=== PATIENT | female | born 1995 | race Caucasian/White ===

== ENCOUNTER 2019-04-02 14:29 | Inpatient (IN) | payer BC ==
[~2019-04-02 14:29] MED LIST: Citric Acid/Sodium Citrate Solution 30 ML Cup PO ONE; Sodium Chloride 0.9% 10 ML SDV IV PRN; Sodium Chloride 0.9% 10 ML Syringe FLUSH PRN; Sodium Chloride 0.9% 2.5 ML Syringe FLUSH PRN; ceFAZolin 2 GM in Premix Bag 1 BAG IV ONE
[2019-04-02] MEDS ORDERED: Lactated Ringers 1,000 ML IV SCH ×2 (14:30→16:45)
[2019-04-02] MEDS ORDERED: Oxytocin/0.9 % Sodium Chloride 30 UNIT/500 ML BAG IV SCH (14:30)
[2019-04-02] MEDS ORDERED: Sodium Chloride 0.9% 1,000 ML IV ONE (14:53)
[2019-04-02] MEDS ORDERED: Propofol 200 MG/20 ML SDV ONE (14:57)
[2019-04-02] MEDS ORDERED: Oxytocin 10 Units/1 ML SDV ONE (14:57)
[2019-04-02] MEDS ORDERED: Ondansetron 4 MG/2 ML SDV ONE (14:57)
[2019-04-02] MEDS ORDERED: ePHEDrine 50 MG/ML SDV ONE (14:58)
[2019-04-02] MEDS ORDERED: Morphine PF 10 MG/10 ML SDV ONE (15:00)
--- NOTE | 2019-04-02 15:00 | PCM.PREANE ---
Preanesthetic Assessment - Anesthesia/Transfusion/Family Hx Anesthesia History: Prior Anesthesia Without Reaction Family History of Anesthesia Reaction: No Transfusion History: No Prior Transfusion(s) Intubation History: Unknown - Review of Systems General: No Symptoms Pulmonary: No Symptoms Cardiovascular: No Symptoms Gastrointestinal: No Symptoms Neurological: No Symptoms Other: Reports: None - Physical Assessment Height: 5 ft 9 in Weight: 78.018 kg ASA Class: 2 Mental Status: Alert & Oriented x3 Airway Class: Mallampati = 2 Dentition: Reports: Normal Dentition Thyro-Mental Finger Breadths: 3 Mouth Opening Finger Breadths: 3 ROM/Head Extension: Full Lungs: Clear to Auscultation, Normal Respiratory Effort Cardiovascular: Regular Rate, Regular Rhythm - Lab Values: Laboratory Last Values WBC 8.65 K/uL (4.0-11.0) 04/02/19 14:38 RBC 4.33 M/uL (4.30-5.90) 04/02/19 14:38 Hgb 13.0 g/dL (12.0-16.0) 04/02/19 14:38 Hct 37.6 % (36.0-46.0) 04/02/19 14:38 MCV 86.8 fL (80.0-98.0) 04/02/19 14:38 MCH 30.0 pg (27.0-32.0) 04/02/19 14:38 MCHC 34.6 g/dL (31.0-37.0) 04/02/19 14:38 RDW Std Deviation 39.1 fl (28.0-62.0) 04/02/19 14:38 RDW Coeff of Bin 12 % (11.0-15.0) 04/02/19 14:38 Plt Count 194 K/uL (150-400) 04/02/19 14:38 MPV 11.20 fL (7.40-12.00) 04/02/19 14:38 Nucleated RBC % 0.0 /100WBC 04/02/19 14:38 Nucleated RBCs # 0 K/uL 04/02/19 14:38 - Allergies Allergies/Adverse Reactions: Allergies Allergy/AdvReac Type Severity Reaction Status Date / Time No Known Allergies Allergy Verified 04/01/19 08:20 - Blood Blood Available: No - Anesthesia Plan Pre-Op Medication Ordered: None - Acknowledgements Anesthesia Type Planned: Spinal (general anesthesia back-up plan) Pt an Appropriate Candidate for the Planned Anesthesia: Yes Alternatives and Risks of Anesthesia Discussed w Pt/Guardian: Yes Pt/Guardian Understands and Agrees with Anesthesia Plan: Yes PreAnesthesia Questionnaire HEENT History: Reports: None Cardiovascular History: Reports: None Respiratory History: Reports: None Gastrointestinal History: Reports: None Genitourinary History: Reports: None 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: Musculoskeletal History: Reports: Fracture Other Musculoskeletal History: hx fx wrists as a child Neurological History: Reports: None Psychiatric History: Reports: None Endocrine/Metabolic History: Reports: None Hematologic History: Reports: None Immunologic History: Reports: None Oncologic (Cancer) History: Reports: None Dermatologic History: Reports: None - Past Surgical History Head Surgeries/Procedures: Reports: None HEENT Surgical History: Reports: Adenoidectomy, Oral Surgery, Tonsillectomy Cardiovascular Surgical History: Reports: None Respiratory Surgical History: Reports: None GI Surgical History: Reports: None Female Surgical History: Reports: None Endocrine Surgical History: Reports: None Neurological Surgical History: Reports: None Musculoskeletal Surgical History: Reports: Arthroscopic Knee Other Musculoskeletal Surgeries/Procedures:: ACL repair rt knee Oncologic Surgical History: Reports: None Dermatological Surgical History: Reports: None - SUBSTANCE USE Smoking Status *Q: Never Smoker Recreational Drug Use History: No - HOME MEDS Home Medications: Home Meds Acetaminophen [Tylenol Extra Strength] 1 - 2 tab PO ASDIRECTED PRN 04/01/19 [ History] PNV95/Ferrous Fumarate/FA [ Vitamin Tablet] 1 tab PO DAILY 04/01/19 [ History] - CURRENT (IN HOUSE) MEDS Current Meds: Current Medications Lactated Ringer's (Ringers, Lactated) 1,000 mls @ 500 mls/hr IV BOLUS [facility] Oxytocin/Sodium Chloride (Oxytocin 30 Unit/500 Ml-Ns) 30 unit in 500 mls @ 250 mls/hr IV TITRATE [facility] Sodium Chloride (Normal Saline) 1,000 mls @ 999 mls/hr IV .Bolus ONE Stop: 04/02/19 15:53 Sodium Chloride (Saline Flush) 10 ml FLUSH ASDIRECTED PRN PRN Reason: Keep Vein Open Sodium Chloride (Saline Flush) 2.5 ml FLUSH ASDIRECTED PRN PRN Reason: Keep Vein Open Sodium Chloride (Normal Saline) 10 ml IV ASDIRECTED PRN PRN Reason: IV Use Discontinued Medications Citric Acid/Sodium Citrate (Bicitra Solution) 30 ml PO ONETIME ONE Stop: 04/02/19 14:28 Cefazolin Sodium/Dextrose 2 gm (/ Premix) 50 mls @ 100 mls/hr IV ONETIME ONE Stop: 04/02/19 14:56
[2019-04-02] MEDS ORDERED: Octyl 2-Cyanoacrylate 1 Tube ONE (15:02)
--- NOTE | 2019-04-02 16:34 | PCM.OPNOTE ---
- General Post-Op/Procedure Note Date of Surgery/Procedure: 04/02/19 Operative Procedure(s): primary low transverse Findings: Liveborn male iglesia breech presentation, normal pelvis Pre Op Diagnosis: 38 4/7 weeks iglesia breech presentation, oligohydramnios Post-Op Diagnosis: Same Anesthesia Technique: Spinal Primary Surgeon: Love Broussard Anesthesia Provider: Vale Arzate Radic Pathology: placenta to pathology Fluid Replacement, Intraop: 2,800 Output, Urine Amount: 125 EBL in mLs: 400 Complications: None Known Condition: Good
[2019-04-02] MEDS ORDERED: Lanolin 100% Cream 7 GM Tube TOP PRN (16:35)
[2019-04-02] MEDS ORDERED: Acetaminophen/oxyCODONE 325-5 MG Tab PO PRN ×2 (16:35→16:52)
[2019-04-02] MEDS ORDERED: Bisacodyl 10 MG Supp RECTAL PRN (16:35)
[2019-04-02] MEDS ORDERED: diphenhydrAMINE 50 MG/ML SDV IVPUSH PRN ×2 (16:35→16:52)
[2019-04-02] MEDS ORDERED: Ondansetron 4 MG/2 ML SDV IVPUSH PRN ×2 (16:35→16:52)
[2019-04-02] MEDS ORDERED: Naloxone 0.4 MG/ML Syringe IVPUSH PRN (16:52)
[2019-04-02] MEDS ORDERED: fentaNYL 100 MCG/2 ML SDV IVPUSH PRN (16:52)
[2019-04-02] MEDS ORDERED: Nalbuphine 10 MG/1 ML Vial IVPUSH PRN (16:52)
[2019-04-02] MEDS: Ketorolac 30 MG/ML SDV IVPUSH SCH ×2 (16:55→22:44)
[2019-04-02] MEDS: Docusate Sodium 100 MG Cap PO SCH (21:20)
[2019-04-03] MEDS: Ketorolac 30 MG/ML SDV IVPUSH SCH ×3 (04:44→17:23)
--- NOTE | 2019-04-03 09:45 | PCM.PN ---
- General Info Date of Service: 04/03/19 (POD#1 primary for breech/oligo) Functional Status: Reports: Pain Controlled - Review of Systems General: Reports: No Symptoms Gastrointestinal: Reports: No Symptoms Genitourinary: Reports: No Symptoms - Patient Data Vitals - Most Recent: Last Vital Signs Temp 36.8 C 04/03/19 07:35 Pulse 64 04/03/19 07:35 Resp 14 04/03/19 09:00 BP 120/81 04/03/19 07:35 Pulse Ox 98 04/03/19 09:00 Weight - Most Recent: 78.018 kg I&O - Last 24 Hours: Intake & Output 04/02/19 04/03/19 04/03/19 22:59 06:59 14:59 Intake Total 3200 Output Total 1300 2050 Balance 1900 -2050 Lab Results Last 24 Hours: Laboratory Results - last 24 hr 04/02/19 04/02/19 04/02/19 Range/Units 14:38 14:38 15:37 WBC 8.65 (4.0-11.0) K/uL RBC 4.33 (4.30-5.90) M/uL Hgb 13.0 (12.0-16.0) g/dL Hct 37.6 (36.0-46.0) % MCV 86.8 (80.0-98.0) fL MCH 30.0 (27.0-32.0) pg MCHC 34.6 (31.0-37.0) g/dL RDW Std Deviation 39.1 (28.0-62.0) fl RDW Coeff of Bin 12 (11.0-15.0) % Plt Count 194 (150-400) K/uL MPV 11.20 (7.40-12.00) fL Nucleated RBC % 0.0 /100WBC Nucleated RBCs # 0 K/uL Cord ABG pH 7.296 (7.18-7.38) Cord ABG Base Excess -5 (-10--2) Cord VBG pH (7.25-7.45) Cord VBG Base Excess (-10--2) Blood Type A POSITIVE Antibody Screen NEGATIVE 04/02/19 04/03/19 Range/Units 15:37 05:41 WBC (4.0-11.0) K/uL RBC (4.30-5.90) M/uL Hgb 11.6 L (12.0-16.0) g/dL Hct 34.2 L (36.0-46.0) % MCV (80.0-98.0) fL MCH (27.0-32.0) pg MCHC (31.0-37.0) g/dL RDW Std Deviation (28.0-62.0) fl RDW Coeff of Bin (11.0-15.0) % Plt Count (150-400) K/uL MPV (7.40-12.00) fL Nucleated RBC % /100WBC Nucleated RBCs # K/uL Cord ABG pH (7.18-7.38) Cord ABG Base Excess (-10--2) Cord VBG pH 7.318 (7.25-7.45) Cord VBG Base Excess -5 (-10--2) Blood Type Antibody Screen Med Orders - Current: Current Medications Bisacodyl (Dulcolax) 10 mg RECTAL ONETIME PRN PRN Reason: Constipation Diphenhydramine HCl (Benadryl) 25 mg IVPUSH Q6H PRN PRN Reason: Itching or Nausea Diphenhydramine HCl (Benadryl) 25 mg IVPUSH Q4H PRN PRN Reason: Itching Stop: 04/03/19 16:52 Docusate Sodium (Colace) 100 mg PO BID [facility] Last Admin: 04/02/19 21:20 Dose: 100 mg Emollient Ointment (Lansinoh Hpa) 0 gm TOP ASDIRECTED PRN PRN Reason: Sore Nipples Fentanyl (Sublimaze) 50 mcg IVPUSH Q1H PRN PRN Reason: Pain (severe 7-10) Lactated Ringer's (Ringers, Lactated) 1,000 mls @ 125 mls/hr IV ASDIRECTED [facility] Last Admin: 04/02/19 22:45 Dose: 125 mls/hr Ibuprofen (Motrin) 800 mg PO Q8H PRN PRN Reason: mild pain or fever Ketorolac Tromethamine (Toradol) 30 mg IVPUSH Q6H [facility] Stop: 04/03/19 16:46 Last Admin: 04/03/19 04:44 Dose: 30 mg Nalbuphine HCl (Nubain) 5 mg IVPUSH ASDIRECTED PRN PRN Reason: Itching Last Admin: 04/02/19 17:37 Dose: 5 mg Naloxone HCl (Narcan) 0.1 mg IVPUSH ONETIME PRN PRN Reason: Respiratory Depression Stop: 04/03/19 16:52 Ondansetron HCl (Zofran) 4 mg IVPUSH Q4H PRN PRN Reason: Nausea/Vomiting Ondansetron HCl (Zofran) 4 mg IVPUSH Q6H PRN PRN Reason: Nausea Oxycodone/Acetaminophen (Percocet 325-5 Mg) 1 tab PO Q4H PRN PRN Reason: Pain (moderate 4-6) Oxycodone/Acetaminophen (Percocet 325-5 Mg) 2 tab PO Q4H PRN PRN Reason: Pain (moderate 4-6) Oxycodone/Acetaminophen (Percocet 325-5 Mg) 2 tab PO Q6H PRN PRN Reason: Pain (moderate 4-6) Discontinued Medications Citric Acid/Sodium Citrate (Bicitra Solution) 30 ml PO ONETIME ONE Stop: 04/02/19 14:28 Ephedrine Sulfate (Ephedrine Sulfate) Confirm Administered Dose 50 mg .ROUTE .STK-MED ONE Stop: 04/02/19 14:59 Cefazolin Sodium/Dextrose 2 gm (/ Premix) 50 mls @ 100 mls/hr IV ONETIME ONE Stop: 04/02/19 14:56 Lactated Ringer's (Ringers, Lactated) 1,000 mls @ 500 mls/hr IV BOLUS [facility] Last Admin: 04/02/19 15:10 Dose: 999 mls/hr Oxytocin/Sodium Chloride (Oxytocin 30 Unit/500 Ml-Ns) 30 unit in 500 mls @ 250 mls/hr IV TITRATE [facility] Sodium Chloride (Normal Saline) 1,000 mls @ 999 mls/hr IV .Bolus ONE Stop: 04/02/19 15:53 Last Admin: 04/02/19 14:45 Dose: 999 mls/hr Morphine Sulfate (Duramorph Pf) Confirm Administered Dose 10 mg .ROUTE .STK-MED ONE Stop: 04/02/19 15:01 Octyl Cyanoacrylate (Dermabond Advance) Confirm Administered Dose 1 applic .ROUTE .STK-MED ONE Stop: 04/02/19 15:03 Ondansetron HCl (Zofran) Confirm Administered Dose 4 mg .ROUTE .STK-MED ONE Stop: 04/02/19 14:58 Oxytocin (Pitocin) Confirm Administered Dose 30 unit .ROUTE .STK-MED ONE Stop: 04/02/19 14:58 Propofol (Diprivan 20 Ml) Confirm Administered Dose 200 mg .ROUTE .STK-MED ONE Stop: 04/02/19 14:58 Sodium Chloride (Saline Flush) 10 ml FLUSH ASDIRECTED PRN PRN Reason: Keep Vein Open Sodium Chloride (Saline Flush) 2.5 ml FLUSH ASDIRECTED PRN PRN Reason: Keep Vein Open Sodium Chloride (Normal Saline) 10 ml IV ASDIRECTED PRN PRN Reason: IV Use - Exam General: Alert, Oriented, Cooperative, No Acute Distress Neck: Supple Lungs: Normal Respiratory Effort GI/Abdominal Exam: Soft, Non-Tender, Other (Uterus firm and non-tender below umbilicus. Incision appears healthy.) - Problem List & Annotations (1) Delivery by section SNOMED Code(s): 441830626 Code(s): PAW0113 - Status: Acute Current Visit: Yes (2) Breech presentation SNOMED Code(s): 1162287 Code(s): O32.1XX0 - MATERNAL CARE FOR BREECH PRESENTATION, UNSP Status: Acute Current Visit: Yes - Problem List Review Problem List Initiated/Reviewed/Updated: Yes - Assessment Assessment:: POD#1 doing well. Continue cares. Likely d/c in am. - Plan Plan:: See ASSESSMENT
[2019-04-03] MEDS: Docusate Sodium 100 MG Cap PO SCH ×2 (09:47→21:51)
--- NOTE | 2019-04-03 16:47 | PCM.PN ---
- General Info Date of Service: 04/03/19 (Possible area of bleeding of her incision) Admission Dx/Problem (Free Text): I was called by nurse about 3:00 regarding appearance of wound. Functional Status: Reports: Pain Controlled, Tolerating Diet, Ambulating - Patient Data Vitals - Most Recent: Last Vital Signs Temp 37.0 C 04/03/19 16:22 Pulse 62 04/03/19 16:22 Resp 16 04/03/19 16:22 BP 120/77 04/03/19 16:22 Pulse Ox 96 04/03/19 16:22 Weight - Most Recent: 78.018 kg I&O - Last 24 Hours: Intake & Output 04/03/19 04/03/19 04/03/19 06:59 14:59 22:59 Output Total 2049 Balance -2049 Lab Results Last 24 Hours: Laboratory Results - last 24 hr 04/02/19 04/02/19 04/03/19 Range/Units 15:37 15:37 05:41 Hgb 11.6 L (12.0-16.0) g/dL Hct 34.2 L (36.0-46.0) % Cord ABG pH 7.296 (7.18-7.38) Cord ABG Base Excess -5 (-10--2) Cord VBG pH 7.318 (7.25-7.45) Cord VBG Base Excess -5 (-10--2) Med Orders - Current: Current Medications Bisacodyl (Dulcolax) 10 mg RECTAL ONETIME PRN PRN Reason: Constipation Diphenhydramine HCl (Benadryl) 25 mg IVPUSH Q6H PRN PRN Reason: Itching or Nausea Diphenhydramine HCl (Benadryl) 25 mg IVPUSH Q4H PRN PRN Reason: Itching Stop: 04/03/19 16:52 Docusate Sodium (Colace) 100 mg PO BID [facility] Last Admin: 04/03/19 09:47 Dose: 100 mg Emollient Ointment (Lansinoh Hpa) 0 gm TOP ASDIRECTED PRN PRN Reason: Sore Nipples Fentanyl (Sublimaze) 50 mcg IVPUSH Q1H PRN PRN Reason: Pain (severe 7-10) Lactated Ringer's (Ringers, Lactated) 1,000 mls @ 125 mls/hr IV ASDIRECTED [facility] Last Admin: 04/02/19 22:45 Dose: 125 mls/hr Ibuprofen (Motrin) 800 mg PO Q8H PRN PRN Reason: mild pain or fever Ketorolac Tromethamine (Toradol) 30 mg IVPUSH Q6H [facility] Stop: 04/03/19 16:46 Last Admin: 04/03/19 11:07 Dose: 30 mg Nalbuphine HCl (Nubain) 5 mg IVPUSH ASDIRECTED PRN PRN Reason: Itching Last Admin: 04/02/19 17:37 Dose: 5 mg Naloxone HCl (Narcan) 0.1 mg IVPUSH ONETIME PRN PRN Reason: Respiratory Depression Stop: 04/03/19 16:52 Ondansetron HCl (Zofran) 4 mg IVPUSH Q4H PRN PRN Reason: Nausea/Vomiting Ondansetron HCl (Zofran) 4 mg IVPUSH Q6H PRN PRN Reason: Nausea Oxycodone/Acetaminophen (Percocet 325-5 Mg) 1 tab PO Q4H PRN PRN Reason: Pain (moderate 4-6) Oxycodone/Acetaminophen (Percocet 325-5 Mg) 2 tab PO Q4H PRN PRN Reason: Pain (moderate 4-6) Oxycodone/Acetaminophen (Percocet 325-5 Mg) 2 tab PO Q6H PRN PRN Reason: Pain (moderate 4-6) Discontinued Medications Citric Acid/Sodium Citrate (Bicitra Solution) 30 ml PO ONETIME ONE Stop: 04/02/19 14:28 Ephedrine Sulfate (Ephedrine Sulfate) Confirm Administered Dose 50 mg .ROUTE .STK-MED ONE Stop: 04/02/19 14:59 Cefazolin Sodium/Dextrose 2 gm (/ Premix) 50 mls @ 100 mls/hr IV ONETIME ONE Stop: 04/02/19 14:56 Lactated Ringer's (Ringers, Lactated) 1,000 mls @ 500 mls/hr IV BOLUS [facility] Last Admin: 04/02/19 15:10 Dose: 999 mls/hr Oxytocin/Sodium Chloride (Oxytocin 30 Unit/500 Ml-Ns) 30 unit in 500 mls @ 250 mls/hr IV TITRATE [facility] Sodium Chloride (Normal Saline) 1,000 mls @ 999 mls/hr IV .Bolus ONE Stop: 04/02/19 15:53 Last Admin: 04/02/19 14:45 Dose: 999 mls/hr Morphine Sulfate (Duramorph Pf) Confirm Administered Dose 10 mg .ROUTE .STK-MED ONE Stop: 04/02/19 15:01 Octyl Cyanoacrylate (Dermabond Advance) Confirm Administered Dose 1 applic .ROUTE .STK-MED ONE Stop: 04/02/19 15:03 Ondansetron HCl (Zofran) Confirm Administered Dose 4 mg .ROUTE .STK-MED ONE Stop: 04/02/19 14:58 Oxytocin (Pitocin) Confirm Administered Dose 30 unit .ROUTE .STK-MED ONE Stop: 04/02/19 14:58 Propofol (Diprivan 20 Ml) Confirm Administered Dose 200 mg .ROUTE .STK-MED ONE Stop: 04/02/19 14:58 Sodium Chloride (Saline Flush) 10 ml FLUSH ASDIRECTED PRN PRN Reason: Keep Vein Open Sodium Chloride (Saline Flush) 2.5 ml FLUSH ASDIRECTED PRN PRN Reason: Keep Vein Open Sodium Chloride (Normal Saline) 10 ml IV ASDIRECTED PRN PRN Reason: IV Use - Exam GI/Abdominal Exam: Soft, Non-Tender (Pfannensteil incision intact. Area of ecchymosis marked by nurse after she called me about 3:00 - no extension of ecchymosis. Areas around wound are not raised. Doubt hematoma. Doubt active bleeding. Ecchymosis appearance.) - Problem List & Annotations (1) Delivery by section SNOMED Code(s): 729862545 Code(s): GWZ9444 - Status: Acute Current Visit: Yes (2) Breech presentation SNOMED Code(s): 9498184 Code(s): O32.1XX0 - MATERNAL CARE FOR BREECH PRESENTATION, UNSP Status: Acute Current Visit: Yes - Problem List Review Problem List Initiated/Reviewed/Updated: Yes - Assessment Assessment:: POD#1 doing well. Continue cares. Likely d/c in am. - Plan Plan:: continue current routine post-op and PP cares. Pressure against wound with CHAYITO wrap.
[2019-04-03] MEDS: Acetaminophen/oxyCODONE 325-5 MG Tab PO PRN (21:51)
[2019-04-04] MEDS: Ibuprofen 800 MG Tab PO PRN ×2 (01:57→10:45)
[2019-04-04] MEDS: Acetaminophen/oxyCODONE 325-5 MG Tab PO PRN ×2 (05:49→12:58)
--- NOTE | 2019-04-04 09:49 | PCM.PN ---
- General Info Date of Service: 04/04/19 (POD#2, pt feeling well.) Functional Status: Reports: Pain Controlled, Tolerating Diet, Ambulating - Review of Systems General: Reports: No Symptoms Gastrointestinal: Reports: No Symptoms Genitourinary: Reports: No Symptoms (Incision without pain, wothout drainage.) - Patient Data Vitals - Most Recent: Last Vital Signs Temp 36.6 C 04/04/19 07:14 Pulse 60 04/04/19 07:14 Resp 16 04/04/19 09:19 BP 108/65 04/04/19 07:14 Pulse Ox 95 04/04/19 07:14 Weight - Most Recent: 78.018 kg Med Orders - Current: Current Medications Bisacodyl (Dulcolax) 10 mg RECTAL ONETIME PRN PRN Reason: Constipation Diphenhydramine HCl (Benadryl) 25 mg IVPUSH Q6H PRN PRN Reason: Itching or Nausea Docusate Sodium (Colace) 100 mg PO BID [facility] Last Admin: 04/03/19 21:51 Dose: 100 mg Emollient Ointment (Lansinoh Hpa) 0 gm TOP ASDIRECTED PRN PRN Reason: Sore Nipples Fentanyl (Sublimaze) 50 mcg IVPUSH Q1H PRN PRN Reason: Pain (severe 7-10) Lactated Ringer's (Ringers, Lactated) 1,000 mls @ 125 mls/hr IV ASDIRECTED [facility] Last Admin: 04/02/19 22:45 Dose: 125 mls/hr Ibuprofen (Motrin) 800 mg PO Q8H PRN PRN Reason: mild pain or fever Last Admin: 04/04/19 01:57 Dose: 800 mg Nalbuphine HCl (Nubain) 5 mg IVPUSH ASDIRECTED PRN PRN Reason: Itching Last Admin: 04/02/19 17:37 Dose: 5 mg Ondansetron HCl (Zofran) 4 mg IVPUSH Q4H PRN PRN Reason: Nausea/Vomiting Ondansetron HCl (Zofran) 4 mg IVPUSH Q6H PRN PRN Reason: Nausea Oxycodone/Acetaminophen (Percocet 325-5 Mg) 1 tab PO Q4H PRN PRN Reason: Pain (moderate 4-6) Last Admin: 04/04/19 05:49 Dose: 1 tab Oxycodone/Acetaminophen (Percocet 325-5 Mg) 2 tab PO Q4H PRN PRN Reason: Pain (moderate 4-6) Oxycodone/Acetaminophen (Percocet 325-5 Mg) 2 tab PO Q6H PRN PRN Reason: Pain (moderate 4-6) Discontinued Medications Citric Acid/Sodium Citrate (Bicitra Solution) 30 ml PO ONETIME ONE Stop: 04/02/19 14:28 Diphenhydramine HCl (Benadryl) 25 mg IVPUSH Q4H PRN PRN Reason: Itching Stop: 04/03/19 16:52 Ephedrine Sulfate (Ephedrine Sulfate) Confirm Administered Dose 50 mg .ROUTE .STK-MED ONE Stop: 04/02/19 14:59 Cefazolin Sodium/Dextrose 2 gm (/ Premix) 50 mls @ 100 mls/hr IV ONETIME ONE Stop: 04/02/19 14:56 Lactated Ringer's (Ringers, Lactated) 1,000 mls @ 500 mls/hr IV BOLUS [facility] Last Admin: 04/02/19 15:10 Dose: 999 mls/hr Oxytocin/Sodium Chloride (Oxytocin 30 Unit/500 Ml-Ns) 30 unit in 500 mls @ 250 mls/hr IV TITRATE [facility] Sodium Chloride (Normal Saline) 1,000 mls @ 999 mls/hr IV .Bolus ONE Stop: 04/02/19 15:53 Last Admin: 04/02/19 14:45 Dose: 999 mls/hr Ketorolac Tromethamine (Toradol) 30 mg IVPUSH Q6H [facility] Stop: 04/03/19 16:46 Last Admin: 04/03/19 17:23 Dose: 30 mg Morphine Sulfate (Duramorph Pf) Confirm Administered Dose 10 mg .ROUTE .STK-MED ONE Stop: 04/02/19 15:01 Naloxone HCl (Narcan) 0.1 mg IVPUSH ONETIME PRN PRN Reason: Respiratory Depression Stop: 04/03/19 16:52 Octyl Cyanoacrylate (Dermabond Advance) Confirm Administered Dose 1 applic .ROUTE .STK-MED ONE Stop: 04/02/19 15:03 Ondansetron HCl (Zofran) Confirm Administered Dose 4 mg .ROUTE .STK-MED ONE Stop: 04/02/19 14:58 Oxytocin (Pitocin) Confirm Administered Dose 30 unit .ROUTE .STK-MED ONE Stop: 04/02/19 14:58 Propofol (Diprivan 20 Ml) Confirm Administered Dose 200 mg .ROUTE .STK-MED ONE Stop: 04/02/19 14:58 Sodium Chloride (Saline Flush) 10 ml FLUSH ASDIRECTED PRN PRN Reason: Keep Vein Open Sodium Chloride (Saline Flush) 2.5 ml FLUSH ASDIRECTED PRN PRN Reason: Keep Vein Open Sodium Chloride (Normal Saline) 10 ml IV ASDIRECTED PRN PRN Reason: IV Use - Exam General: Alert, Oriented, Cooperative, No Acute Distress, Other (Moving comfortably.) Neck: Supple Lungs: Normal Respiratory Effort GI/Abdominal Exam: Soft, Non-Tender (Uterus firm and non-tender below umbilicus. Incision intact. Ecchymotic, errol posteriorly. Doubt hematoma.) Back Exam: Other (No CVAT) Extremities: Non-Tender - Problem List & Annotations (1) Delivery by section SNOMED Code(s): 863355796 Code(s): LRE8592 - Status: Acute Current Visit: Yes (2) Breech presentation SNOMED Code(s): 4957028 Code(s): O32.1XX0 - MATERNAL CARE FOR BREECH PRESENTATION, UNSP Status: Acute Current Visit: Yes - Problem List Review Problem List Initiated/Reviewed/Updated: Yes - Assessment Assessment:: Pt doing well. Discharge instructions/precautions given. RTC 2w for incision check. - Plan Plan:: Discharge to home with precautions given.
--- NOTE | 2019-04-04 09:54 | PCM.DCSUM1 ---
Discharge Summary - Hospital Course Free Text/Narrative:: POD#2, breech/oligo. - Discharge Data Discharge Date: 04/04/19 Discharge Disposition: Home, Self-Care 01 Condition: Good - Discharge Diagnosis/Problem(s) (1) Delivery by section SNOMED Code(s): 805744861 ICD Code: [id number] - Status: Acute Current Visit: Yes (2) Breech presentation SNOMED Code(s): 4748912 ICD Code: O32.1XX0 - MATERNAL CARE FOR BREECH PRESENTATION, UNSP Status: Acute Current Visit: Yes - Patient Summary/Data Operative Procedure(s) Performed: primary low transverse - Patient Instructions Diet: Usual Diet as Tolerated Activity: No Lifting Over 10 Pounds Driving, Other: Drive only when painfree without medication. Showering/Bathing: May Shower Wound/Incision Care: Keep Operative Site/Wound Site Clean and Dry Notify Provider of: Fever, Increased Pain, Swelling and Redness, Drainage - Discharge Plan *PRESCRIPTION DRUG MONITORING PROGRAM REVIEWED*: Yes *COPY OF PRESCRIPTION DRUG MONITORING REPORT IN PATIENT JOSR: Yes Home Medications: Home Meds Acetaminophen [Tylenol Extra Strength] 1 - 2 tab PO ASDIRECTED PRN 04/01/19 [ History] PNV95/Ferrous Fumarate/FA [ Vitamin Tablet] 1 tab PO DAILY 04/01/19 [ History] - Discharge Summary/Plan Comment DC Time >30 min.: No - General Info Date of Service: 04/04/19 Functional Status: Reports: Pain Controlled, Tolerating Diet, Ambulating, Urinating - Review of Systems General: Reports: No Symptoms Gastrointestinal: Reports: No Symptoms Genitourinary: Reports: No Symptoms - Patient Data Vitals - Most Recent: Last Vital Signs Temp 36.6 C 04/04/19 07:14 Pulse 60 04/04/19 07:14 Resp 16 04/04/19 09:19 BP 108/65 04/04/19 07:14 Pulse Ox 95 04/04/19 07:14 Weight - Most Recent: 78.018 kg Med Orders - Current: Current Medications Bisacodyl (Dulcolax) 10 mg RECTAL ONETIME PRN PRN Reason: Constipation Diphenhydramine HCl (Benadryl) 25 mg IVPUSH Q6H PRN PRN Reason: Itching or Nausea Docusate Sodium (Colace) 100 mg PO BID [facility] Last Admin: 04/03/19 21:51 Dose: 100 mg Emollient Ointment (Lansinoh Hpa) 0 gm TOP ASDIRECTED PRN PRN Reason: Sore Nipples Fentanyl (Sublimaze) 50 mcg IVPUSH Q1H PRN PRN Reason: Pain (severe 7-10) Lactated Ringer's (Ringers, Lactated) 1,000 mls @ 125 mls/hr IV ASDIRECTED THAO Last Admin: 04/02/19 22:45 Dose: 125 mls/hr Ibuprofen (Motrin) 800 mg PO Q8H PRN PRN Reason: mild pain or fever Last Admin: 04/04/19 01:57 Dose: 800 mg Nalbuphine HCl (Nubain) 5 mg IVPUSH ASDIRECTED PRN PRN Reason: Itching Last Admin: 04/02/19 17:37 Dose: 5 mg Ondansetron HCl (Zofran) 4 mg IVPUSH Q4H PRN PRN Reason: Nausea/Vomiting Ondansetron HCl (Zofran) 4 mg IVPUSH Q6H PRN PRN Reason: Nausea Oxycodone/Acetaminophen (Percocet 325-5 Mg) 1 tab PO Q4H PRN PRN Reason: Pain (moderate 4-6) Last Admin: 04/04/19 05:49 Dose: 1 tab Oxycodone/Acetaminophen (Percocet 325-5 Mg) 2 tab PO Q4H PRN PRN Reason: Pain (moderate 4-6) Oxycodone/Acetaminophen (Percocet 325-5 Mg) 2 tab PO Q6H PRN PRN Reason: Pain (moderate 4-6) Discontinued Medications Citric Acid/Sodium Citrate (Bicitra Solution) 30 ml PO ONETIME ONE Stop: 04/02/19 14:28 Diphenhydramine HCl (Benadryl) 25 mg IVPUSH Q4H PRN PRN Reason: Itching Stop: 04/03/19 16:52 Ephedrine Sulfate (Ephedrine Sulfate) Confirm Administered Dose 50 mg .ROUTE .STK-MED ONE Stop: 04/02/19 14:59 Cefazolin Sodium/Dextrose 2 gm (/ Premix) 50 mls @ 100 mls/hr IV ONETIME ONE Stop: 04/02/19 14:56 Lactated Ringer's (Ringers, Lactated) 1,000 mls @ 500 mls/hr IV BOLUS THAO Last Admin: 04/02/19 15:10 Dose: 999 mls/hr Oxytocin/Sodium Chloride (Oxytocin 30 Unit/500 Ml-Ns) 30 unit in 500 mls @ 250 mls/hr IV TITRATE THAO Sodium Chloride (Normal Saline) 1,000 mls @ 999 mls/hr IV .Bolus ONE Stop: 04/02/19 15:53 Last Admin: 04/02/19 14:45 Dose: 999 mls/hr Ketorolac Tromethamine (Toradol) 30 mg IVPUSH Q6H THAO Stop: 04/03/19 16:46 Last Admin: 04/03/19 17:23 Dose: 30 mg Morphine Sulfate (Duramorph Pf) Confirm Administered Dose 10 mg .ROUTE .STK-MED ONE Stop: 04/02/19 15:01 Naloxone HCl (Narcan) 0.1 mg IVPUSH ONETIME PRN PRN Reason: Respiratory Depression Stop: 04/03/19 16:52 Octyl Cyanoacrylate (Dermabond Advance) Confirm Administered Dose 1 applic .ROUTE .STK-MED ONE Stop: 04/02/19 15:03 Ondansetron HCl (Zofran) Confirm Administered Dose 4 mg .ROUTE .STK-MED ONE Stop: 04/02/19 14:58 Oxytocin (Pitocin) Confirm Administered Dose 30 unit .ROUTE .STK-MED ONE Stop: 04/02/19 14:58 Propofol (Diprivan 20 Ml) Confirm Administered Dose 200 mg .ROUTE .STK-MED ONE Stop: 04/02/19 14:58 Sodium Chloride (Saline Flush) 10 ml FLUSH ASDIRECTED PRN PRN Reason: Keep Vein Open Sodium Chloride (Saline Flush) 2.5 ml FLUSH ASDIRECTED PRN PRN Reason: Keep Vein Open Sodium Chloride (Normal Saline) 10 ml IV ASDIRECTED PRN PRN Reason: IV Use - Exam General: Reports: Alert, Oriented, Cooperative, No Acute Distress Lungs: Reports: Normal Respiratory Effort GI/Abdominal Exam: Soft, Non-Tender
[2019-04-04] MEDS ORDERED: Acetaminophen/oxyCODONE 325-5 MG Tab PO PRN (09:57)
[2019-04-04] MEDS: Docusate Sodium 100 MG Cap PO SCH (10:45)
[2019-04-04] MEDS ORDERED: Measles, Mumps & Rubella Vaccine 0.5 ML SDV SUBCUT ONE ×2 (14:54→15:01)
[2019-04-05] MEDS ORDERED: Prenatal Multivitamin and Multimineral with Iron Tab PO SCH (09:00)
[2019-04-05] MEDS ORDERED: Acetaminophen 500 MG Tab PO PRN (09:55)
--- NOTE | 2019-04-06 12:14 | OR ---
SURGEON: Love Broussard M.D. DATE OF PROCEDURE: 04/02/2019 PREOPERATIVE DIAGNOSES: 1. A 38-4/7 week intrauterine . 2. Peyman breech presentation. 3. Oligohydramnios. POSTOPERATIVE DIAGNOSES: 1. A 38-4/7 week intrauterine . 2. Peyman breech presentation. 3. Oligohydramnios. PROCEDURE: Primary low-transverse section. PRIMARY SURGEON: Love Broussard M.D. ANESTHESIA: Spinal. ESTIMATED BLOOD LOSS: Less than 400 mL. FLUIDS: 2800 mL of crystalloid. URINE OUTPUT: 125 mL. FINDINGS: Live-born male. score 8 and 9. Peyman breech presentation. Normal appearing uterus, tubes, and ovaries. COMPLICATIONS: None known. DISPOSITION: Stable to recovery. BRIEF HISTORY: This is a 23-year-old female, G1, P0. She is 38-4/7 weeks' gestation. She has been followed for breech presentation. She was evaluated for possible external version, however, the fluid level at that time was 7 cm and has been stable at 6 cm until today. One biophysical profile was performed and showed the VIKTOR to be 3 cm. Therefore, decision was made to proceed with a primary low transverse section with risks discussed including bleeding, infection, injury to bowel, bladder, blood vessels, ureters, or other organs; risk of thromboembolic event. Understanding these risks, she does desire to proceed. DESCRIPTION OF PROCEDURE: With the patient in the left tilt position, under adequate spinal analgesia, the abdomen was prepped with chlorhexidine and draped in usual fashion for abdominal surgery. SCDs were in place. Woo catheter was in place and she received 2 g of Ancef IV. After documentation of adequate analgesia and an appropriate time- out was held, a transverse curvilinear incision was made over the 2 cm cephalad from the pubic symphysis through subcutaneous tissue and the fascia, which was scored in the midline transversely. The fascial incision was extended using curved Beck scissors. The fascia was elevated from the underlying rectus muscle and using sharp and blunt dissection. The rectus muscles were and a finger was placed into the peritoneal cavity. Incision was extended using sharp and blunt dissection. The Matt O retractor was placed. The visceroperitoneum over the lower uterine segment was incised to develop an adequate bladder flap. A transverse curvilinear incision was made over the lower uterine segment with a scalpel. A finger was used to enter the amniotic cavity. There was essentially no fluid noted. The breech was then delivered in the sacrum anterior position. The arms were swept. The head was flexed and the was delivered. The infant is a liveborn male, score 8 and 9. Weight is pending at the time of dictation. After the cord had ceased to pulsate, it was doubly clamped and cut. The was handed to the nurse in attendance at delivery. Cord blood was collected for cord ABGs as well as routine cord blood sampling. Pitocin was initiated after delivery of the infant to assist with delivery of the placenta, which delivered spontaneously and intact. The uterus was then cleaned with dry laparotomy tape. The ring forceps was used to open the cervix. The uterine incision was closed with a running lock suture of 0 Polysorb followed by an imbricating layer of 0 Polysorb. Multiple [id number] sutures were placed for complete hemostasis. The tubes and ovaries were inspected and appeared normally. The pelvis was cleaned with wet laparotomy tape. The uterine incision was again inspected and was hemostatic. The Matt O retractor was removed. The uterine incision was inspected 1 last time to confirm hemostasis. The rectus muscle and peritoneum were then reapproximated using a running mattress suture of 0 Polysorb. The posterior aspect of the fascia was inspected and any areas of bleeding that were noted were cauterized. The fascial incision was closed with a running suture of 0 Polysorb. Subcutaneous tissue was irrigated. Any areas of bleeding that were noted were cauterized. The skin was closed with a running subcuticular suture of 3-0 Monocryl followed by skin glue. Final sponge, needle, and instrument counts were correct. There were no known complications. Mother and baby are in recovery in good condition. JEFF / ANGELLA /[id number]
== END 2019-04-04 15:29 | disposition home or self-care (01) | DRG 540 ==
LOC: MW.OB 14:29
PROVIDERS: ADMIT Obstetrics & Gynecology; ATTEND Obstetrics & Gynecology
PROC: 10D00Z1 Extraction of Products of Conception, Low, Open Approach (ICD-10-PCS; principal; 2019-04-02)
PROC: 3E0234Z Introduction of Serum, Toxoid and Vaccine into Muscle, Percutaneous Approach (ICD-10-PCS; 2019-04-04)
DX: O32.1XX0 Maternal care for breech presentation, not applicable or unspecified (principal); O41.03X0 Oligohydramnios, third trimester, not applicable or unspecified; Z37.0 Single live birth; Z3A.38 38 weeks gestation of pregnancy; Z23 Encounter for immunization
CPT/HCPCS: 36415; 59025; 82803; 85014; 85018; 85027; 86850; 86900; 86901; 90471; 90707; A9270-GY; J1885; J2270; J2300; J2405; J2590; J2704; J7040; J7120

== ENCOUNTER 2021-02-02 05:19 | Inpatient (IN) | payer OTHER ==
[2021-02-02] MEDS ORDERED: Sodium Chloride 0.9% 10 ML SDV IV PRN (05:34)
[2021-02-02] MEDS ORDERED: Sodium Chloride 0.9% 2.5 ML Syringe FLUSH PRN (05:34)
[2021-02-02] MEDS ORDERED: Sodium Chloride 0.9% 10 ML Syringe FLUSH PRN (05:34)
[2021-02-02] MEDS ORDERED: Oxytocin/0.9 % Sodium Chloride 30 UNIT/500 ML BAG IV SCH (05:45)
[2021-02-02] MEDS: Lactated Ringers 1,000 ML IV SCH ×2 (06:30→07:27)
[2021-02-02] MEDS ORDERED: fentaNYL 100 MCG/2 ML SDV ONE (06:56)
[2021-02-02] MEDS ORDERED: Morphine PF 10 MG/10 ML SDV ONE (06:56)
[2021-02-02] MEDS ORDERED: Phenylephrine 1% 10 MG/ML SDV ONE (06:57)
[2021-02-02] MEDS ORDERED: Ondansetron 4 MG/2 ML SDV ONE (07:01)
--- NOTE | 2021-02-02 07:14 | PCM.PREANE ---
Preanesthetic Assessment - Anesthesia/Transfusion/Family Hx Anesthesia History: Prior Anesthesia Without Reaction Family History of Anesthesia Reaction: No Transfusion History: No Prior Transfusion(s) Intubation History: Unknown - Review of Systems General: No Symptoms Pulmonary: No Symptoms Cardiovascular: No Symptoms Gastrointestinal: No Symptoms Neurological: No Symptoms Other: Reports: None - Physical Assessment Height: 1.75 m Weight: 75.296 kg ASA Class: 2 Mental Status: Alert & Oriented x3 Airway Class: Mallampati = 2 Dentition: Reports: Normal Dentition ROM/Head Extension: Full Cardiovascular: Regular Rate - Lab Values: Laboratory Last Values WBC 8.85 K/uL (4.0-11.0) 02/02/21 06:19 RBC 4.26 M/uL (4.30-5.90) L 02/02/21 06:19 Hgb 13.3 g/dL (12.0-16.0) 02/02/21 06:19 Hct 38.5 % (36.0-46.0) 02/02/21 06:19 MCV 90.4 fL (80.0-98.0) 02/02/21 06:19 MCH 31.2 pg (27.0-32.0) 02/02/21 06:19 MCHC 34.5 g/dL (31.0-37.0) 02/02/21 06:19 RDW Std Deviation 41.3 fl (28.0-62.0) 02/02/21 06:19 RDW Coeff of Bin 13 % (11.0-15.0) 02/02/21 06:19 Plt Count 158 K/uL (150-400) 02/02/21 06:19 MPV 11.40 fL (7.40-12.00) 02/02/21 06:19 Nucleated RBC % 0.0 /100WBC 02/02/21 06:19 Nucleated RBCs # 0 K/uL 02/02/21 06:19 - Allergies Allergies/Adverse Reactions: Allergies Allergy/AdvReac Type Severity Reaction Status Date / Time No Known Allergies Allergy Verified 01/29/21 08:23 - Acknowledgements Anesthesia Type Planned: Spinal Pt an Appropriate Candidate for the Planned Anesthesia: Yes Alternatives and Risks of Anesthesia Discussed w Pt/Guardian: Yes Pt/Guardian Understands and Agrees with Anesthesia Plan: Yes PreAnesthesia Questionnaire HEENT History: Reports: None Cardiovascular History: Reports: None Respiratory History: Reports: None Gastrointestinal History: Reports: None Genitourinary History: Reports: None ELECTRO [employer]CH[employer]IC History: Reports: Musculoskeletal History: Reports: Fracture Other Musculoskeletal History: hx fx wrists as a child Neurological History: Reports: None Psychiatric History: Reports: None Endocrine/Metabolic History: Reports: None Hematologic History: Reports: None Immunologic History: Reports: None Oncologic (Cancer) History: Reports: None Dermatologic History: Reports: None - Infectious Disease History Infectious Disease History: Reports: None - Past Surgical History Head Surgeries/Procedures: Reports: None HEENT Surgical History: Reports: Adenoidectomy, Oral Surgery, Tonsillectomy Cardiovascular Surgical History: Reports: None Respiratory Surgical History: Reports: None GI Surgical History: Reports: None Female Surgical History: Reports: Section Endocrine Surgical History: Reports: None Neurological Surgical History: Reports: None Musculoskeletal Surgical History: Reports: Arthroscopic Knee Other Musculoskeletal Surgeries/Procedures:: ACL repair rt knee Oncologic Surgical History: Reports: None Dermatological Surgical History: Reports: None - HOME MEDS Home Medications: Home Meds Acetaminophen [Tylenol Extra Strength] 1 - 2 tab PO ASDIRECTED PRN 04/01/19 [History] Pnv No.95/Ferrous Fum/Folic AC [ Vitamin Tablet] 1 tab PO DAILY 04/01/19 [History] - CURRENT (IN HOUSE) MEDS Current Meds: Current Medications Citric Acid/Sodium Citrate (Citric Acid/Sodium Citrate Solution 30 Ml Cup) 30 ml PO ONETIME ONE Stop: 02/02/21 07:46 Oxytocin/Sodium Chloride (Oxytocin 30 Unit/500 Ml-Ns) 30 unit in 500 mls @ 250 mls/hr IV TITRATE THAO Cefazolin Sodium/Dextrose 2 gm (/ Premix) 50 mls @ 100 mls/hr IV ONETIME ONE Stop: 02/02/21 08:14 Lactated Ringer's (Ringers, Lactated) 1,000 mls @ 500 mls/hr IV BOLUS THAO Sodium Chloride (Sodium Chloride 0.9% 10 Ml Syringe) 10 ml FLUSH ASDIRECTED PRN PRN Reason: Keep Vein Open Sodium Chloride (Sodium Chloride 0.9% 2.5 Ml Syringe) 2.5 ml FLUSH ASDIRECTED PRN PRN Reason: Keep Vein Open Sodium Chloride (Sodium Chloride 0.9% 10 Ml Sdv) 10 ml IV ASDIRECTED PRN PRN Reason: IV Use Discontinued Medications Fentanyl (Fentanyl 100 Mcg/2 Ml Sdv) Confirm Administered Dose 100 mcg .ROUTE .STK-MED ONE Stop: 02/02/21 06:57 Morphine Sulfate (Morphine Pf 10 Mg/10 Ml Sdv) Confirm Administered Dose 10 mg .ROUTE .STK-MED ONE Stop: 02/02/21 06:57 Ondansetron HCl (Ondansetron 4 Mg/2 Ml Sdv) Confirm Administered Dose 4 mg .ROUTE .STK-MED ONE Stop: 02/02/21 07:02 Phenylephrine HCl (Phenylephrine 1% 10 Mg/Ml Sdv) Confirm Administered Dose 10 mg .ROUTE .STK-MED ONE Stop: 02/02/21 06:58
[2021-02-02] MEDS ORDERED: Nalbuphine 10 MG/1 ML Vial IVPUSH PRN (07:30)
[2021-02-02] MEDS ORDERED: Naloxone 0.4 MG/ML Syringe IVPUSH PRN (07:30)
[2021-02-02] MEDS ORDERED: Acetaminophen/oxyCODONE 325-5 MG Tab PO PRN ×2 (07:30→09:03)
[2021-02-02] MEDS ORDERED: Naloxone 0.4 MG/ML Syringe IVPUSH ONE (07:30)
[2021-02-02] MEDS ORDERED: Citric Acid/Sodium Citrate Solution 30 ML Cup PO ONE (07:45)
[2021-02-02] MEDS ORDERED: ceFAZolin 2 GM in Premix Bag 1 BAG IV ONE (07:45)
[2021-02-02] MEDS ORDERED: Metoclopramide 10 MG/2 ML SDV ONE (08:41)
[2021-02-02] MEDS ORDERED: Dexamethasone 4 MG/ML 5 ML MDV ONE (08:41)
[2021-02-02] MEDS ORDERED: Octyl 2-Cyanoacrylate 1 Tube ONE (08:47)
[2021-02-02] MEDS ORDERED: Lanolin 100% Cream 7 GM Tube TOP PRN (09:03)
[2021-02-02] MEDS ORDERED: diphenhydrAMINE 50 MG/ML SDV IVPUSH PRN (09:03)
[2021-02-02] MEDS ORDERED: Methylergonovine 0.2 MG/1 ML Amp IM PRN (09:03)
[2021-02-02] MEDS ORDERED: Bisacodyl 10 MG Supp RECTAL PRN (09:03)
[2021-02-02] MEDS ORDERED: Tranexamic Acid 1,000 MG in Sodium Chloride 0.9% 100 ML IV PRN (09:03)
[2021-02-02] MEDS ORDERED: Oxytocin 10 Units/1 ML SDV IM PRN (09:03)
[2021-02-02] MEDS ORDERED: Misoprostol 200 MCG Tab RECTAL PRN (09:03)
[2021-02-02] MEDS ORDERED: Ondansetron 4 MG/2 ML SDV IVPUSH PRN (09:03)
[2021-02-02] MEDS ORDERED: Oxytocin/Lactated Ringers 30 UNIT/500 ML BAG IV SCH (09:15)
[2021-02-02] MEDS ORDERED: Lactated Ringers 1,000 ML IV SCH (09:15)
--- NOTE | 2021-02-02 09:18 | PCM.OPNOTE ---
- General Post-Op/Procedure Note Date of Surgery/Procedure: 02/02/21 Operative Procedure(s): repeat low transverse Findings: fetus head to maternal right lower quadrant neck and low occiput presenting, normal pelvis, liveborn male 3/9 weight pending Pre Op Diagnosis: 39 weeks, prior Post-Op Diagnosis: Same and malpresentation Anesthesia Technique: Spinal Primary Surgeon: Love Broussard Anesthesia Provider: Michelle Benson Pathology: none Fluid Replacement, Intraop: 1,400 Output, Urine Amount: 200 EBL in mLs: 300 Complications: None Known Condition: Good
[2021-02-02] MEDS: Ketorolac 30 MG/ML SDV IVPUSH SCH ×3 (09:34→21:41)
--- NOTE | 2021-02-02 10:05 | PCM.POSTAN ---
POST ANESTHESIA ASSESSMENT - MENTAL STATUS Mental Status: Alert (no problems), Oriented - RESPIRATORY Respiratory Status: Respiratory Rate WNL, Airway Patent, O2 Saturation Stable - CARDIOVASCULAR CV Status: Pulse Rate WNL, Blood Pressure Stable - GASTROINTESTINAL GI Status: No Symptoms - POST OP HYDRATION Hydration Status: Adequate & Stable
[2021-02-02] MEDS ORDERED: Oxytocin/0.9 % Sodium Chloride 30 UNIT/500 ML BAG ONE (11:49)
--- NOTE | 2021-02-02 18:42 | OR ---
SURGEON: Love Broussard M.D. DATE OF PROCEDURE: 02/02/2021 PREOPERATIVE DIAGNOSES: 1. 39-week intrauterine . 2. Previous delivery. 3. Declines vaginal trial of labor. POSTOPERATIVE DIAGNOSES: 1. 39-week intrauterine . 2. Previous delivery. 3. Declines vaginal trial of labor. PROCEDURE: Repeat low transverse section. PRIMARY SURGEON: Love Broussard M.D. ANESTHESIA: Spinal. ESTIMATED BLOOD LOSS: 300 mL. FINDINGS: Live-born male. score 3 and 9. Weight is pending at the time of dictation. Normal-appearing uterus, tubes, and ovaries. The fetus was in a slightly oblique presentation with the head in the maternal right lower quadrant. COMPLICATIONS: None known. DISPOSITION: Stable to Recovery. BRIEF HISTORY: This is a 25-year-old female. She is G2, P1-0-0-1. She presents at 39 weeks gestation for repeat delivery. Prior was for breech presentation. She was offered vaginal trial of labor versus . This fetus has been in breech presentation for a time period, but had appeared to turn cephalic. She still desired to proceed with a repeat low transverse section with risks discussed including bleeding; infection; injury to bowel, bladder, blood vessels, ureters, or other organs; risk of thromboembolic event; risk of anesthesia; and understanding these risks, she does desire to proceed. DESCRIPTION OF PROCEDURE: With the patient in left tilt position, under adequate spinal analgesia, the abdomen was prepped with chlorhexidine and draped in usual fashion for abdominal surgery. SCDs were in place. Woo catheter had been placed. Appropriate time- out was held and the patient had received 2 g of Ancef IV. After documentation of adequate analgesia, the prior cicatrix was excised and the transverse curvilinear incision was carried through the subcutaneous tissue to the fascia which was scored transversely in the midline. The fascia was incised in the midline and the incision was extended using sharp and blunt dissection. The fascia was elevated from the underlying rectus muscle and using sharp and blunt dissection. The rectus muscles were in the midline and the incision was extended using sharp and blunt dissection. The Matt O retractor was placed. The visceral peritoneum over the lower uterine segment was incised to develop an adequate bladder flap. A transverse curvilinear incision was made over the lower uterine segment with a scalpel. A finger was used to enter the amniotic cavity and clear fluid was noted. The incision was extended bluntly using cephalad and caudad traction to extend the transverse incision. The head was then elevated, but it was noted that the head was in the right lower quadrant and the presenting part was the very lower occiput and the neck. I did attempt to readjust the position several times and then with fundal pressure delivered the head. However, I could not get it to deflect adequately to fit through the established incision. Therefore, the Matt O retractor was removed. I did consider utilizing vacuum assistance. However, I could not get the head into position that was appropriate for vacuum placement. Therefore, I did cut the rectus muscles 1.5 cm on the right and the left and with this, I was able to reposition the head and deliver. The was then delivered. The cord was clamped x2 and cut. The was handed to the nurse in attendance at delivery. The infant was a liveborn male, score 3 and 9, weight is pending at the time of dictation. Cord blood was collected for cord ABGs as well as routine cord blood sampling. Pitocin was initiated after delivery of the to assist with delivery of the placenta which was delivered with manual extraction. The uterus was cleaned with a dry laparotomy tape. The cervix was opened with ring forceps. The uterine incision was closed with a running lock suture of 0 Polysorb followed by an imbricating layer of 0 Polysorb. At this point, Anesthesia noted a slight pink tinge to the urine. Therefore, the bladder was backfilled with sterile formula. There was no evidence of any trauma to the bladder. Therefore, the bladder was then released. The uterine incision was again inspected and was hemostatic. The tubes and ovaries were inspected and they appeared normal. Therefore, the Matt O retractor which had been replaced into the abdomen after delivery of the infant was then removed. The uterine incision had one final assessment and was hemostatic. Therefore, the rectus muscles were reapproximated using multiple [id number] sutures at the point of the transverse incision of the rectus muscle. There was no bleeding in the rectus muscle or posterior to it and they came together with good support and then in the midline, the two bellies of the rectus muscles were reapproximated using a running mattress suture of 0 Polysorb. The posterior aspect of the fascia was inspected and was hemostatic. The fascial incision was closed with a running suture of 0 Polysorb. Subcutaneous tissue was irrigated. Any areas of bleeding that were noted were cauterized. The skin was closed with a running subcuticular suture of 3-0 Monocryl followed by Dermabond. Final sponge, needle, and instrument counts were reported as correct. There were no known complications. The did require resuscitation and is currently stable in nursery, getting ready to be given to mom, taken to the room to be with the mother. JEFF / ANGELLA /[id number]
[2021-02-02] MEDS: Docusate Sodium 100 MG Cap PO SCH (21:43)
[2021-02-03] MEDS: Ketorolac 30 MG/ML SDV IVPUSH SCH ×2 (03:04→09:13)
--- NOTE | 2021-02-03 07:07 | PCM48HPAN ---
Post Anesthesia Note - EVALUATION WITHIN 48HRS OF ANESTHETIC Vital Signs in Normal Range: Yes Patient Participated in Evaluation: Yes Respiratory Function Stable: Yes Airway Patent: Yes Cardiovascular Function Stable: Yes Hydration Status Stable: Yes Pain Control Satisfactory: Yes Nausea and Vomiting Control Satisfactory: Yes Mental Status Recovered: Yes Vital Signs: Last Vital Signs Temp 36.2 C 02/03/21 05:00 Pulse 65 02/03/21 06:00 Resp 17 02/03/21 06:00 BP 113/54 L 02/03/21 05:00 Pulse Ox 98 02/03/21 06:00
[2021-02-03] MEDS: Docusate Sodium 100 MG Cap PO SCH ×2 (09:12→20:40)
--- NOTE | 2021-02-03 09:30 | PCM.PNPP ---
- General Info Date of Service: 02/03/21 Functional Status: Reports: Pain Controlled, Tolerating Diet, Ambulating - Review of Systems General: Reports: No Symptoms HEENT: Reports: No Symptoms Pulmonary: Reports: No Symptoms Cardiovascular: Reports: No Symptoms Gastrointestinal: Reports: No Symptoms Genitourinary: Reports: No Symptoms Musculoskeletal: Reports: No Symptoms Skin: Reports: No Symptoms Neurological: Reports: No Symptoms Psychiatric: Reports: No Symptoms - Patient Data Vital Signs - Most Recent: Last Vital Signs Temp 36.2 C 02/03/21 05:00 Pulse 63 02/03/21 07:00 Resp 18 02/03/21 07:00 BP 113/54 L 02/03/21 05:00 Pulse Ox 99 02/03/21 07:00 Weight - Most Recent: 75.296 kg I&O - Last 24 Hours: Intake & Output 02/02/21 02/03/21 02/03/21 22:59 06:59 14:59 Output Total 700 1275 Balance -700 -1275 Lab Results - Last 24 Hours: Laboratory Results - last 24 hr 02/03/21 Range/Units 06:15 Hgb 11.6 L (12.0-16.0) g/dL Hct 34.3 L (36.0-46.0) % Med Orders - Current: Current Medications Bisacodyl (Bisacodyl 10 Mg Supp) 10 mg RECTAL ONETIME PRN PRN Reason: Constipation Diphenhydramine HCl (Diphenhydramine 50 Mg/Ml Sdv) 25 mg IVPUSH Q6H PRN PRN Reason: Itching or Nausea Docusate Sodium (Docusate Sodium 100 Mg Cap) 100 mg PO BID [facility] Last Admin: 02/03/21 09:12 Dose: 100 mg Documented by: Emollient Ointment (Lanolin 100% Cream 7 Gm Tube) 0 gm TOP ASDIRECTED PRN PRN Reason: Sore Nipples Last Admin: 02/03/21 09:12 Dose: 1 applic Documented by: Lactated Ringer's (Ringers, Lactated) 1,000 mls @ 125 mls/hr IV ASDIRECTED [facility] Last Admin: 02/02/21 12:47 Dose: 125 mls/hr Documented by: Oxytocin/Lactated Ringer's (Pitocin In Lr 30 Units/500 Ml) 30 unit in 500 mls @ 999 mls/hr IV TITRATE [facility]; Protocol Tranexamic Acid 1,000 mg/ (Sodium Chloride) 110 mls @ 660 mls/hr IV ONETIME PRN PRN Reason: Bleeding Ibuprofen (Ibuprofen 800 Mg Tab) 800 mg PO Q8H PRN PRN Reason: mild pain or fever Methylergonovine Maleate (Methylergonovine 0.2 Mg/1 Ml Amp) 0.2 mg IM ONETIME PRN PRN Reason: Excessive Vaginal Bleeding Last Admin: 02/02/21 11:53 Dose: 0.2 mg Documented by: Misoprostol (Misoprostol 200 Mcg Tab) 1,000 mcg RECTAL ONETIME PRN PRN Reason: excessive bleeding Ondansetron HCl (Ondansetron 4 Mg/2 Ml Sdv) 4 mg IVPUSH Q4H PRN PRN Reason: Nausea/Vomiting Last Admin: 02/02/21 12:51 Dose: 4 mg Documented by: Oxycodone/Acetaminophen (Acetaminophen/Oxycodone 325-5 Mg Tab) 1 tab PO ONETIME PRN PRN Reason: Pain (moderate 4-6) Oxycodone/Acetaminophen (Acetaminophen/Oxycodone 325-5 Mg Tab) 1 tab PO Q4H PRN PRN Reason: Pain (moderate 4-6) Oxycodone/Acetaminophen (Acetaminophen/Oxycodone 325-5 Mg Tab) 2 tab PO Q4H PRN PRN Reason: Pain (moderate 4-6) Oxytocin (Oxytocin 10 Units/1 Ml Sdv) 10 unit IM ASDIRECTED PRN PRN Reason: Excessive Vaginal Bleeding Discontinued Medications Citric Acid/Sodium Citrate (Citric Acid/Sodium Citrate Solution 30 Ml Cup) 30 ml PO ONETIME ONE Stop: 02/02/21 07:46 Dexamethasone (Dexamethasone 4 Mg/Ml 5 Ml Mdv) Confirm Administered Dose 20 mg .ROUTE .STK-MED ONE Stop: 02/02/21 08:42 Fentanyl (Fentanyl 100 Mcg/2 Ml Sdv) Confirm Administered Dose 100 mcg .ROUTE .STK-MED ONE Stop: 02/02/21 06:57 Oxytocin/Sodium Chloride (Oxytocin 30 Unit/500 Ml-Ns) 30 unit in 500 mls @ 250 mls/hr IV TITRATE [facility] Last Admin: 02/02/21 11:53 Dose: 250 mls/hr Documented by: Cefazolin Sodium/Dextrose 2 gm (/ Premix) 50 mls @ 100 mls/hr IV ONETIME ONE Stop: 02/02/21 08:14 Lactated Ringer's (Ringers, Lactated) 1,000 mls @ 500 mls/hr IV BOLUS [facility] Last Admin: 02/02/21 07:27 Dose: 500 mls/hr Documented by: Cefazolin Sodium/Dextrose (Ancef 2 Gm/50 Ml) Confirm Administered Dose 50 mls @ as directed .ROUTE .STK-MED ONE Stop: 02/02/21 07:11 Oxytocin/Sodium Chloride (Oxytocin 30 Unit/500 Ml-Ns) Confirm Administered Dose 30 unit in 500 mls @ as directed .ROUTE .STK-MED ONE Stop: 02/02/21 11:50 Last Admin: 02/02/21 12:25 Dose: Not Given Documented by: Ketorolac Tromethamine (Ketorolac 30 Mg/Ml Sdv) 30 mg IVPUSH Q6H [facility] Stop: 02/03/21 09:16 Last Admin: 02/03/21 09:13 Dose: 30 mg Documented by: Metoclopramide HCl (Metoclopramide 10 Mg/2 Ml Sdv) Confirm Administered Dose 10 mg .ROUTE .STK-MED ONE Stop: 02/02/21 08:42 Morphine Sulfate (Morphine Pf 10 Mg/10 Ml Sdv) Confirm Administered Dose 10 mg .ROUTE .STK-MED ONE Stop: 02/02/21 06:57 Nalbuphine HCl (Nalbuphine 10 Mg/1 Ml Vial) 5 mg IVPUSH Q3H PRN PRN Reason: Pruritis Stop: 02/03/21 07:31 Naloxone HCl (Naloxone 0.4 Mg/Ml Syringe) 0.1 mg IVPUSH ONETIME ONE Stop: 02/02/21 07:31 Last Admin: 02/02/21 09:40 Dose: Not Given Documented by: Naloxone HCl (Naloxone 0.4 Mg/Ml Syringe) 0.1 mg IVPUSH ONETIME PRN PRN Reason: Respiratory Depression Stop: 02/03/21 07:31 Octyl Cyanoacrylate (Octyl 2-Cyanoacrylate 1 Tube) Confirm Administered Dose 1 applic .ROUTE .STK-MED ONE Stop: 02/02/21 08:48 Last Admin: 02/02/21 09:39 Dose: Not Given Documented by: Ondansetron HCl (Ondansetron 4 Mg/2 Ml Sdv) Confirm Administered Dose 4 mg .ROUTE .STK-MED ONE Stop: 02/02/21 07:02 Phenylephrine HCl (Phenylephrine 1% 10 Mg/Ml Sdv) Confirm Administered Dose 10 mg .ROUTE .STK-MED ONE Stop: 02/02/21 06:58 Sodium Chloride (Sodium Chloride 0.9% 10 Ml Syringe) 10 ml FLUSH ASDIRECTED PRN PRN Reason: Keep Vein Open Sodium Chloride (Sodium Chloride 0.9% 2.5 Ml Syringe) 2.5 ml FLUSH ASDIRECTED PRN PRN Reason: Keep Vein Open Sodium Chloride (Sodium Chloride 0.9% 10 Ml Sdv) 10 ml IV ASDIRECTED PRN PRN Reason: IV Use - Infant Interaction Disposition, : [place] in Room with Family Interaction: Holding Infant Feeding: Breastfed Infant; Nursed Well Support Person: - Recovery Exam Fundal Tone: Firm Fundal Level: 1 Fingerbreadths Below Umbilicus Fundal Placement: Midline Lochia Amount: Scant Lochia Color: Rubra/Red Perineum Description: Intact, Minimal Bruising/Swelling Episiotomy/Laceration: None Bladder Status: Indwelling Catheter in Place Urinary Elimination: Indwelling Catheter - Exam Neck: Supple Lungs: Normal Respiratory Effort GI/Abdominal Exam: Soft, Non-Tender, No Distention Extremities: Normal Inspection, Non-Tender, No Pedal Edema Skin: Warm, Dry, Intact Wound/Incisions: Dressing Dry and Intact Neurological: No New Focal Deficit - Problem List & Annotations (1) Delivery by section SNOMED Code(s): 375286219 Code(s): FCC7976 - Status: Acute Current Visit: No - Problem List Review Problem List Initiated/Reviewed/Updated: Yes - My Orders Last 24 Hours: My Active Orders 02/02/21 09:03 Patient Status [ADT] Routine Ambulate [RC] PER UNIT ROUTINE Communication Order [RC] PER UNIT ROUTINE Communication Order [RC] PER UNIT ROUTINE Communication Order [RC] Per Unit Routine May Shower [RC] ASDIRECTED RT Incentive Spirometry [RC] Q2HWA Acetaminophen/oxyCODONE [Percocet 325-5 MG] 1 tab PO Q4H PRN Acetaminophen/oxyCODONE [Percocet 325-5 MG] 2 tab PO Q4H PRN Lanolin [Lansinoh HPA] See Dose Instructions TOP ASDIRECTED PRN Methylergonovine [Methergine] 0.2 mg IM ONETIME PRN Ondansetron [Zofran] 4 mg IVPUSH Q4H PRN Oxytocin [Pitocin] 10 unit IM ASDIRECTED PRN Tranexamic Acid [Cyklokapron] 1,000 mg Sodium Chloride 0.9% [Normal Saline] 100 ml IV ONETIME bisacodyL [Dulcolax] 10 mg RECTAL ONETIME PRN diphenhydrAMINE [Benadryl] 25 mg IVPUSH Q6H PRN miSOPROStoL [Cytotec] 1,000 mcg RECTAL ONETIME PRN Abdominal Binder [OM.PC] Urgent Assess Lochia [WOMSER] Per Unit Routine Assess Uterine Involution [WOMSER] Per Unit Routine Breast Pump [WOMSER] Per Unit Routine DVT/VTE Prophylaxis Reflex [OM.PC] Routine Heat Therapy [OM.PC] Urgent Peripheral IV Discontinue [OM.PC] Routine Sequential Compression Device [OM.PC] Per Unit Routine Resuscitation Status Routine 02/02/21 09:04 Antiembolic Devices [RC] PER UNIT ROUTINE Intake and Output [RC] Q12H Notify Provider Vital Signs [RC] ASDIRECTED 02/02/21 09:05 Antiembolic Devices [RC] .Routine Notify Provider Intake and Out [RC] ASDIRECTED VTE/DVT Education [RC] PER UNIT ROUTINE 02/02/21 09:15 Lactated Ringers [Ringers, Lactated] 1,000 ml IV ASDIRECTED Oxytocin/Lactated Ringers [Pitocin in LR 30 Units/500 ML] 30 unit in 500 ml IV TITRATE 02/02/21 Lunch Regular Diet [DIET] 02/02/21 21:00 Docusate Sodium [Colace] 100 mg PO BID 02/03/21 15:15 Ibuprofen [Motrin] 800 mg PO Q8H PRN - Assessment Assessment:: POD#1 after repeat low transverse Stable Minimal lochia Rh positive well - Plan Plan:: Continue postop care, transition to oral pain medications. Remove dressing, ambulate, may shower
[2021-02-03] MEDS: Acetaminophen/oxyCODONE 325-5 MG Tab PO PRN ×3 (13:22→23:19)
[2021-02-03] MEDS: Ibuprofen 800 MG Tab PO PRN (17:21)
[2021-02-03] MEDS: Simethicone 80 MG Tab.Chew PO PRN (20:40)
[2021-02-04] MEDS: Simethicone 80 MG Tab.Chew PO PRN (02:20)
[2021-02-04] MEDS: Ibuprofen 800 MG Tab PO PRN (02:20)
[2021-02-04] MEDS: Acetaminophen/oxyCODONE 325-5 MG Tab PO PRN ×2 (06:35→11:27)
--- NOTE | 2021-02-04 07:04 | PCM48HPAN ---
Post Anesthesia Note - EVALUATION WITHIN 48HRS OF ANESTHETIC Vital Signs in Normal Range: Yes Patient Participated in Evaluation: Yes Respiratory Function Stable: Yes Airway Patent: Yes Cardiovascular Function Stable: Yes Hydration Status Stable: Yes Pain Control Satisfactory: Yes Nausea and Vomiting Control Satisfactory: Yes Mental Status Recovered: Yes Vital Signs: Last Vital Signs Temp 36.9 C 02/03/21 23:30 Pulse 60 02/03/21 23:30 Resp 16 02/03/21 23:30 BP 106/56 L 02/03/21 23:30 Pulse Ox 97 02/03/21 23:30
[2021-02-04] MEDS: Docusate Sodium 100 MG Cap PO SCH (09:28)
--- NOTE | 2021-02-04 10:42 | PCM.PNPP ---
- General Info Date of Service: 02/04/21 Functional Status: Reports: Pain Controlled, Tolerating Diet, Ambulating, Urinating - Review of Systems General: Reports: No Symptoms HEENT: Reports: No Symptoms Pulmonary: Reports: No Symptoms Cardiovascular: Reports: No Symptoms Gastrointestinal: Reports: No Symptoms Genitourinary: Reports: No Symptoms Musculoskeletal: Reports: No Symptoms Skin: Reports: No Symptoms Neurological: Reports: No Symptoms Psychiatric: Reports: No Symptoms - General Info Date of Service: 02/04/21 - Patient Data Vital Signs - Most Recent: Last Vital Signs Temp 36.5 C 02/04/21 09:00 Pulse 69 02/04/21 09:00 Resp 16 02/04/21 09:00 BP 127/69 02/04/21 09:00 Pulse Ox 97 02/04/21 09:00 Weight - Most Recent: 75.296 kg Med Orders - Current: Current Medications Bisacodyl (Bisacodyl 10 Mg Supp) 10 mg RECTAL ONETIME PRN PRN Reason: Constipation Diphenhydramine HCl (Diphenhydramine 50 Mg/Ml Sdv) 25 mg IVPUSH Q6H PRN PRN Reason: Itching or Nausea Docusate Sodium (Docusate Sodium 100 Mg Cap) 100 mg PO BID [facility] Last Admin: 02/04/21 09:28 Dose: 100 mg Documented by: Emollient Ointment (Lanolin 100% Cream 7 Gm Tube) 0 gm TOP ASDIRECTED PRN PRN Reason: Sore Nipples Last Admin: 02/03/21 09:12 Dose: 1 applic Documented by: Lactated Ringer's (Ringers, Lactated) 1,000 mls @ 125 mls/hr IV ASDIRECTED [facility] Last Admin: 02/02/21 12:47 Dose: 125 mls/hr Documented by: Oxytocin/Lactated Ringer's (Pitocin In Lr 30 Units/500 Ml) 30 unit in 500 mls @ 999 mls/hr IV TITRATE [facility]; Protocol Tranexamic Acid 1,000 mg/ (Sodium Chloride) 110 mls @ 660 mls/hr IV ONETIME PRN PRN Reason: Bleeding Ibuprofen (Ibuprofen 800 Mg Tab) 800 mg PO Q8H PRN PRN Reason: mild pain or fever Last Admin: 02/04/21 02:20 Dose: 800 mg Documented by: Methylergonovine Maleate (Methylergonovine 0.2 Mg/1 Ml Amp) 0.2 mg IM ONETIME PRN PRN Reason: Excessive Vaginal Bleeding Last Admin: 02/02/21 11:53 Dose: 0.2 mg Documented by: Misoprostol (Misoprostol 200 Mcg Tab) 1,000 mcg RECTAL ONETIME PRN PRN Reason: excessive bleeding Ondansetron HCl (Ondansetron 4 Mg/2 Ml Sdv) 4 mg IVPUSH Q4H PRN PRN Reason: Nausea/Vomiting Last Admin: 02/02/21 12:51 Dose: 4 mg Documented by: Oxycodone/Acetaminophen (Acetaminophen/Oxycodone 325-5 Mg Tab) 1 tab PO ONETIME PRN PRN Reason: Pain (moderate 4-6) Oxycodone/Acetaminophen (Acetaminophen/Oxycodone 325-5 Mg Tab) 1 tab PO Q4H PRN PRN Reason: Pain (moderate 4-6) Last Admin: 02/04/21 06:35 Dose: 1 tab Documented by: Oxycodone/Acetaminophen (Acetaminophen/Oxycodone 325-5 Mg Tab) 2 tab PO Q4H PRN PRN Reason: Pain (moderate 4-6) Oxytocin (Oxytocin 10 Units/1 Ml Sdv) 10 unit IM ASDIRECTED PRN PRN Reason: Excessive Vaginal Bleeding Simethicone (Simethicone 80 Mg Tab.Chew) 80 mg PO Q6H PRN PRN Reason: Gas Last Admin: 02/04/21 02:20 Dose: 80 mg Documented by: Discontinued Medications Citric Acid/Sodium Citrate (Citric Acid/Sodium Citrate Solution 30 Ml Cup) 30 ml PO ONETIME ONE Stop: 02/02/21 07:46 Last Admin: 02/04/21 07:49 Dose: Not Given Documented by: Dexamethasone (Dexamethasone 4 Mg/Ml 5 Ml Mdv) Confirm Administered Dose 20 mg .ROUTE .STK-MED ONE Stop: 02/02/21 08:42 Fentanyl (Fentanyl 100 Mcg/2 Ml Sdv) Confirm Administered Dose 100 mcg .ROUTE .STK-MED ONE Stop: 02/02/21 06:57 Oxytocin/Sodium Chloride (Oxytocin 30 Unit/500 Ml-Ns) 30 unit in 500 mls @ 250 mls/hr IV TITRATE [facility] Last Admin: 02/02/21 11:53 Dose: 250 mls/hr Documented by: Cefazolin Sodium/Dextrose 2 gm (/ Premix) 50 mls @ 100 mls/hr IV ONETIME ONE Stop: 02/02/21 08:14 Last Admin: 02/04/21 07:49 Dose: Not Given Documented by: Lactated Ringer's (Ringers, Lactated) 1,000 mls @ 500 mls/hr IV BOLUS [facility] Last Admin: 02/02/21 07:27 Dose: 500 mls/hr Documented by: Cefazolin Sodium/Dextrose (Ancef 2 Gm/50 Ml) Confirm Administered Dose 50 mls @ as directed .ROUTE .STK-MED ONE Stop: 02/02/21 07:11 Oxytocin/Sodium Chloride (Oxytocin 30 Unit/500 Ml-Ns) Confirm Administered Dose 30 unit in 500 mls @ as directed .ROUTE .STK-MED ONE Stop: 02/02/21 11:50 Last Admin: 02/02/21 12:25 Dose: Not Given Documented by: Ketorolac Tromethamine (Ketorolac 30 Mg/Ml Sdv) 30 mg IVPUSH Q6H [facility] Stop: 02/03/21 09:16 Last Admin: 02/03/21 09:13 Dose: 30 mg Documented by: Metoclopramide HCl (Metoclopramide 10 Mg/2 Ml Sdv) Confirm Administered Dose 10 mg .ROUTE .STK-MED ONE Stop: 02/02/21 08:42 Morphine Sulfate (Morphine Pf 10 Mg/10 Ml Sdv) Confirm Administered Dose 10 mg .ROUTE .STK-MED ONE Stop: 02/02/21 06:57 Nalbuphine HCl (Nalbuphine 10 Mg/1 Ml Vial) 5 mg IVPUSH Q3H PRN PRN Reason: Pruritis Stop: 02/03/21 07:31 Naloxone HCl (Naloxone 0.4 Mg/Ml Syringe) 0.1 mg IVPUSH ONETIME ONE Stop: 02/02/21 07:31 Last Admin: 02/02/21 09:40 Dose: Not Given Documented by: Naloxone HCl (Naloxone 0.4 Mg/Ml Syringe) 0.1 mg IVPUSH ONETIME PRN PRN Reason: Respiratory Depression Stop: 02/03/21 07:31 Octyl Cyanoacrylate (Octyl 2-Cyanoacrylate 1 Tube) Confirm Administered Dose 1 applic .ROUTE .STK-MED ONE Stop: 02/02/21 08:48 Last Admin: 02/02/21 09:39 Dose: Not Given Documented by: Ondansetron HCl (Ondansetron 4 Mg/2 Ml Sdv) Confirm Administered Dose 4 mg .ROUTE .STK-MED ONE Stop: 02/02/21 07:02 Phenylephrine HCl (Phenylephrine 1% 10 Mg/Ml Sdv) Confirm Administered Dose 10 mg .ROUTE .STK-MED ONE Stop: 02/02/21 06:58 Sodium Chloride (Sodium Chloride 0.9% 10 Ml Syringe) 10 ml FLUSH ASDIRECTED PRN PRN Reason: Keep Vein Open Sodium Chloride (Sodium Chloride 0.9% 2.5 Ml Syringe) 2.5 ml FLUSH ASDIRECTED PRN PRN Reason: Keep Vein Open Sodium Chloride (Sodium Chloride 0.9% 10 Ml Sdv) 10 ml IV ASDIRECTED PRN PRN Reason: IV Use - Infant Interaction Disposition, : [place] in Room with Family Infant Interaction: Holding Infant Feeding: Breastfed Infant; Nursed Well Support Person: - Recovery Exam Fundal Tone: Firm Fundal Level: 1 Fingerbreadths Below Umbilicus Fundal Placement: Midline Lochia Amount: Scant Lochia Color: Rubra/Red Perineum Description: Edematous, Other (see below) Other Perinuem Description: R labial swelling. Pt reports she had this with previous . Episiotomy/Laceration: None Bladder Status: Voiding Urinary Elimination: Voided - Exam General: Alert, Oriented Neck: Supple Lungs: Normal Respiratory Effort GI/Abdominal Exam: Soft, Non-Tender Extremities: Non-Tender (varicosities are soft, nontender), No Pedal Edema Skin: Warm Wound/Incisions: Healing Well (small ecchymosis on mons) Psy/Mental Status: Alert, Normal Affect, Normal Mood - Problem List & Annotations (1) Delivery by section SNOMED Code(s): 549990717 Code(s): [id number] - Status: Acute Current Visit: No - Problem List Review Problem List Initiated/Reviewed/Updated: Yes - My Orders Last 24 Hours: My Active Orders 02/03/21 15:15 Ibuprofen [Motrin] 800 mg PO Q8H PRN 02/03/21 20:10 Simethicone 80 mg PO Q6H PRN 02/04/21 10:41 Ready for Discharge [RC] PER UNIT ROUTINE - Assessment Assessment:: POD#2 after repeat low transverse Stable Minimal lochia Rh positive well - Plan Plan:: Dismiss to home today, discharge instructions reviewed.
== END 2021-02-04 11:35 | disposition home or self-care (01) | DRG 788 ==
LOC: MW.OB 05:19
PROVIDERS: ADMIT Obstetrics & Gynecology; ATTEND Obstetrics & Gynecology
PROC: 10D00Z1 Extraction of Products of Conception, Low, Open Approach (ICD-10-PCS; principal; 2021-02-02)
DX: O34.211 Maternal care for low transverse scar from previous cesarean delivery (principal); Z37.0 Single live birth; Z3A.39 39 weeks gestation of pregnancy
CPT/HCPCS: 36415; 59025; 82803; 85014; 85018; 85027; 86592; 86850; 86900; 86901; A9270-GY; J0690; J1100; J1885; J2210; J2270; J2370; J2405; J2590; J2765; J3010; J7120

== ENCOUNTER 2023-07-25 05:22 | Inpatient (IN) | payer OTHER ==
[~2023-07-25 05:22] MED LIST changes: +Acetaminophen/oxyCODONE 325-5 MG Tab PO PRN; +Albuterol 0.083% 2.5 MG/3 ML Neb Soln NEB PRN; -Citric Acid/Sodium Citrate Solution 30 ML Cup PO ONE; +HYDROmorphone 1 MG/ML Syringe IVPUSH PRN; +Metoclopramide 10 MG/2 ML SDV IVPUSH PRN; +Morphine 2 MG/ML SYRINGE IVPUSH PRN; +Naloxone 0.4 MG/ML SDV IVPUSH PRN; +Ondansetron 4 MG/2 ML SDV IVPUSH PRN; -Sodium Chloride 0.9% 10 ML SDV IV PRN; -Sodium Chloride 0.9% 10 ML Syringe FLUSH PRN; -Sodium Chloride 0.9% 2.5 ML Syringe FLUSH PRN; -ceFAZolin 2 GM in Premix Bag 1 BAG IV ONE; +diphenhydrAMINE 50 MG/ML SDV IVPUSH PRN; +droPERidol 5 MG/2 ML SDV IVPUSH PRN; +ePHEDrine 50 MG/ML SDV IVPUSH PRN; +fentaNYL 100 MCG/2 ML SDV IVPUSH PRN; +fentaNYL 50 MCG/ML SDV IVPUSH PRN
[2023-07-25] MEDS ORDERED: Sodium Chloride 0.9% 2.5 ML Syringe FLUSH PRN (05:50)
[2023-07-25] MEDS ORDERED: ceFAZolin 2 GM in Sodium Chloride 0.9% 50 ML IV ONE (05:50)
[2023-07-25] MEDS ORDERED: Water For Irrigation,Sterile 1,000 ML Container IRR PRN (05:50)
[2023-07-25] MEDS ORDERED: Methylergonovine 0.2 MG/1 ML Amp IM PRN ×2 (05:50→09:03)
[2023-07-25] MEDS ORDERED: Misoprostol 200 MCG Tab PO PRN (05:50)
[2023-07-25] MEDS ORDERED: Tranexamic Acid IN NACL,ISO-OS 1,000 MG in Premix Bag 1 BAG IV PRN ×4 (05:50→09:03)
[2023-07-25] MEDS ORDERED: Citric Acid/Sodium Citrate Solution 30 ML Cup PO ONE (05:50)
[2023-07-25] MEDS ORDERED: Sodium Chloride 0.9% 20 ML SDV IV PRN (05:50)
[2023-07-25] MEDS ORDERED: Sodium Chloride 0.9% 10 ML Syringe FLUSH PRN (05:50)
[2023-07-25] MEDS ORDERED: Lidocaine 1% 50 ML MDV INJECT PRN (05:50)
[2023-07-25] MEDS ORDERED: Carboprost Tromethamine 250 MCG/1 mL Vial IM PRN (05:50)
[2023-07-25] MEDS ORDERED: Oxytocin/0.9 % Sodium Chloride 30 UNIT/500 ML BAG IV SCH ×3 (06:00→09:15)
[2023-07-25] MEDS ORDERED: Lactated Ringers 1,000 ML IV SCH ×3 (06:00→09:15)
[2023-07-25 06:51] LABS: HEMATOCRIT 37.3 % (36.0-46.0); HEMOGLOBIN 12.7 g/dL (12.0-16.0); MEAN CORPUSCULAR HEMOGLOBIN 29.1 pg (27.0-32.0); MEAN CORPUSCULAR VOLUME 85.6 fL (80.0-98.0); MEAN PLATELET VOLUME 10.7 fL (7.40-12.00); RED BLOOD CELL COUNT 4.36 M/uL (4.30-5.90); WHITE BLOOD CELL COUNT,WBC 7.37 K/uL (4.0-11.0)
[2023-07-25] MEDS ORDERED: ceFAZolin 1 GM Vial ONE (07:23)
[2023-07-25] MEDS ORDERED: Ketorolac 30 MG/ML SDV ONE (07:23)
[2023-07-25] MEDS ORDERED: Water For Injection, Sterile 20 ML ONE (07:23)
[2023-07-25] MEDS ORDERED: Ropivacaine 0.5% 5 MG/ML 30 ML SDV ONE (07:23)
[2023-07-25] MEDS ORDERED: Oxytocin 10 Units/1 ML SDV ONE (07:23)
[2023-07-25] MEDS ORDERED: Dexamethasone 4 MG/ML 5 ML MDV ONE (07:23)
[2023-07-25] MEDS ORDERED: Ondansetron 4 MG/2 ML SDV ONE (07:23)
[2023-07-25] MEDS ORDERED: Phenylephrine 1% 10 MG/ML SDV ONE (07:23)
[2023-07-25] MEDS ORDERED: fentaNYL 100 MCG/2 ML SDV ONE (07:30)
[2023-07-25] MEDS ORDERED: Morphine PF 10 MG/10 ML SDV ONE (07:30)
[2023-07-25] MEDS ORDERED: Bisacodyl 10 MG Supp RECTAL PRN (09:03)
[2023-07-25] MEDS ORDERED: Oxytocin 10 Units/1 ML SDV IM PRN (09:03)
[2023-07-25] MEDS ORDERED: Lanolin 100% Cream 7 GM Tube TOP PRN (09:03)
[2023-07-25] MEDS ORDERED: Misoprostol 200 MCG Tab RECTAL PRN (09:03)
[2023-07-25] MEDS ORDERED: Ondansetron 4 MG/2 ML SDV IVPUSH PRN (09:03)
[2023-07-25] MEDS ORDERED: diphenhydrAMINE 50 MG/ML SDV IVPUSH PRN (09:03)
[2023-07-25] MEDS ORDERED: Ibuprofen 800 MG Tab PO PRN (09:03)
[2023-07-25 09:41] LABS: PH,UMBILICAL ARTERIAL 7.442 (7.18-7.38); PH,UMBILICAL VENOUS 7.334 (7.25-7.45)
[2023-07-25] MEDS: Ketorolac 30 MG/ML SDV IVPUSH SCH ×3 (12:40→20:47)
[2023-07-25] MEDS ORDERED: Acetaminophen 1,000 MG in Premix Bag 1 BAG IV ONE (14:00)
[2023-07-25] MEDS: Docusate Sodium 100 MG Cap PO SCH (20:46)
[2023-07-25] MEDS: Simethicone 80 MG Tab.Chew PO PRN (20:48)
[2023-07-26] MEDS: Ketorolac 30 MG/ML SDV IVPUSH SCH ×2 (03:11→09:10)
[2023-07-26] MEDS: Simethicone 80 MG Tab.Chew PO PRN ×2 (03:11→09:08)
[2023-07-26 05:42] LABS: HEMATOCRIT 35.1 % (36.0-46.0); HEMOGLOBIN 11.8 g/dL (12.0-16.0)
[2023-07-26] MEDS ORDERED: Prenatal Multivitamin with Calcium/Folic Acid/Iron Tab PO SCH (09:00)
[2023-07-26] MEDS: Docusate Sodium 100 MG Cap PO SCH (09:09)
== END 2023-07-26 16:52 | disposition home or self-care (01) | DRG 788 ==
LOC: MW.OB 05:22
PROVIDERS: ADMIT Obstetrics & Gynecology; ATTEND Obstetrics & Gynecology
PROC: 10D00Z1 Extraction of Products of Conception, Low, Open Approach (ICD-10-PCS; principal; 2023-07-25)
PROC: 3E033VJ Introduction of Other Hormone into Peripheral Vein, Percutaneous Approach (ICD-10-PCS; 2023-07-25)
DX: O34.211 Maternal care for low transverse scar from previous cesarean delivery (principal); Z37.0 Single live birth; Z3A.39 39 weeks gestation of pregnancy; Z90.89 Acquired absence of other organs; Z98.890 Other specified postprocedural states
CPT/HCPCS: 36415; 82803; 85014; 85018; 85027; 86592; 86850; 86900; 86901; A9270-GY; J0131; J0690; J1100; J1885; J2274; J2371; J2405; J2590; J2795; J3010; J3490; J7120